=== PATIENT | female | born 1935 | race Asian ===

== ENCOUNTER → 2016-05-29 | Outpatient (CLI) | payer MEDICARE, OTHER ==
[~2016-05-29] MED LIST: ALLO100T PO; AMIT25TA9 PO; AMLO-512 PO; AMLO5TAB66 PO; ASPI81 PO; CARV3 PO; CLON0.1T PO; COLC0.6T69 PO; FERR-89 PO; FOLI1TAB85 PO; HYDR-4172 PO; NITR.4 SL; PRED5 PO; SIMV10TA6 PO; SITA25 PO; VITAD1000 PO
== END | disposition home or self-care (01) ==
LOC: RADPV 10:44
PROVIDERS: ATTEND Nurse Practitioner
DX: I51.7 Cardiomegaly (principal); I70.0 Atherosclerosis of aorta
CPT/HCPCS: 71020

== ENCOUNTER 2016-09-19 08:05 | Inpatient (IN) | payer MEDICARE, OTHER ==
[~2016-09-19] VITALS: Ht 162.6 cm; Wt 47.6 kg
[~2016-09-19 08:05] MED LIST changes: -AMLO-512 PO; -AMLO5TAB66 PO; -CLON0.1T PO; -COLC0.6T69 PO; -HYDR-4172 PO
[2016-09-19] MEDS ORDERED: AMIT25TA9 PO (08:19)
[2016-09-19] MEDS ORDERED: CLON0.1T PO (08:24)
[2016-09-19] MEDS ORDERED: HYDR-4172 PO (08:24)
[2016-09-19] MEDS ORDERED: AMLO5TAB66 PO (08:24)
[2016-09-19] MEDS ORDERED: COLC0.6T69 PO (08:24)
[2016-09-19] MEDS ORDERED: ACETAMINOPHEN 325 MG TABLET PO ONE (08:30)
[2016-09-19 09:02] LABS: ANION GAP 8 mmol/L (8-16); CARBON DIOXIDE 28 mmol/L (22-29); CHLORIDE 95 mmol/L (98-107); CREATININE 3.68 mg/dL (0.60-1.30); GLOMERULAR FILTR. RATE CALC 12 mL/min (>60); POTASSIUM 4.5 mmol/L (3.5-5.1); SODIUM SERUM 131 mmol/L (136-145); UREA NITROGEN, BLOOD 38 mg/dL (7-18)
[2016-09-19 09:22] LABS: BASOPHILS % (AUTO) 1.1 % (0.0-2.0); EOSINOPHILS % (AUTO) 0.9 % (1.0-6.0); HEMATOCRIT 28.2 % (36-46); HEMOGLOBIN 9.3 g/dL (12.0-16.0); LYMPHOCYTES # (AUTO) 1.2 K/uL (1.0-4.8); LYMPHOCYTES % (AUTO) 34.1 % (22.0-44.0); MEAN CORPUSCULAR HGB CONC 33.2 G/dL (31.0-37.0); MEAN CORPUSCULAR VOLUME 96 fL (80-100); MONOCYTES # (AUTO) 0.6 K/uL (0.1-1.0); MONOCYTES % (AUTO) 16.3 % (2.0-9.0); NEUTROPHILS # (AUTO) 1.7 K/uL (1.8-7.7); NEUTROPHILS % (AUTO) 47.6 % (40.0-70.0); PLATELET COUNT (AUTO) 153 K/uL (150-450); RED BLOOD CELL COUNT(AUTO) 2.92 MIL/uL (4.00-5.20); RED CELL DISTRIBUTION WIDTH 19.7 % (11.5-14.5); WHITE BLOOD COUNT (AUTO) 3.6 K/uL (4.5-11.0)
[2016-09-19 09:27] LABS: ALANINE AMINOTRANSFERASE 85 U/L (12-78); ALBUMIN 3.4 g/dL (3.4-5.0); ASPARTATE AMINOTRANSFERASE 88 U/L (15-37); BILIRUBIN,TOTAL 0.6 mg/dL (0.1-1.0); CREATINE KINASE MB 1.3 ng/mL (0-5); CREATINE KINASE, TOTAL 304 U/L (26-192); THYROID STIMULATING HORMONE 2.95 uIU/mL (0.36-3.74); TOTAL PROTEIN, SERUM 7.4 g/dL (6.4-8.2)
[2016-09-19 09:40] LABS: ADD UA MICROSCOPIC YES; APPEARANCE,URINE CLOUDY (CLEAR); GLUCOSE, URINE (UA) NEGATIVE (NEGATIVE); KETONES,URINE TRACE mg/dL (NEGATIVE); LEUKOCYTE ESTERASE ,URINE MODERATE (NEGATIVE); OCCULT BLOOD,URINE MODERATE (NEGATIVE); PROTEIN,URINE POS 1+ (NEGATIVE)
[2016-09-19 09:41] LABS: RBC MORPHOLOGY COMMENT DIMORPHIC RBC
[2016-09-19 09:49] LABS: AMORPHOUS SEDIMENT,UR Moderate /LPF (None Seen); SQUAMOUS EPITHELIAL CELL,UR Few /LPF (None Seen)
[2016-09-19] MEDS ORDERED: DOPamine HCL 400 MG/D5%-WATER 250 ML IV ONE (09:49)
[2016-09-19] MEDS ORDERED: SODIUM CHLORIDE 0.9% 500 ML IV ONE (10:45)
[2016-09-19] MEDS ORDERED: ACETAMINOPHEN 325 MG TABLET PO PRN (11:30)
[2016-09-19] MEDS ORDERED: BISACODYL 10 MG RECTAL RECTAL SUPPOSITORY PR PRN (11:30)
[2016-09-19] MEDS ORDERED: ALBUTEROL SULFATE 2.5 MG/0.5 ML NEB SOLUTION NEB PRN (11:30)
[2016-09-19] MEDS ORDERED: AMLO-512 PO (11:33)
[2016-09-19] MEDS: DOPamine HCL 400 MG/D5%-WATER 250 ML IV SCH ×2 (11:33→18:22)
[2016-09-19] MEDS ORDERED: SODIUM CHLORIDE 0.9% 250 ML IV ONE (12:45)
[2016-09-19 16:00] VITALS: BP 108/50
[2016-09-19] MEDS ORDERED: ONDANSETRON HCL 4 MG/2 ML VIAL IVP PRN (16:30)
[2016-09-19 20:00] VITALS: BP 127/50
[2016-09-19] MEDS: HEPARIN SODIUM,PORCINE 5,000 UNITS/ML VIAL SQ SCH (20:11)
[2016-09-19] MEDS: DOCUSATE SODIUM 100 MG CAPSULE PO SCH (20:11)
[2016-09-20] VITALS (7 sets, daily range): BP systolic 122–143; BP diastolic 45–89
[2016-09-20 05:08] LABS: BASOPHILS % (AUTO) 0.4 % (0.0-2.0); EOSINOPHILS % (AUTO) 0.2 % (1.0-6.0); HEMATOCRIT 26.3 % (36-46); HEMOGLOBIN 8.8 g/dL (12.0-16.0); LYMPHOCYTES # (AUTO) 0.7 K/uL (1.0-4.8); LYMPHOCYTES % (AUTO) 18.8 % (22.0-44.0); MEAN CORPUSCULAR HEMOGLOBIN 32.1 pg (26.0-34.0); MEAN CORPUSCULAR HGB CONC 33.5 G/dL (31.0-37.0); MEAN CORPUSCULAR VOLUME 96 fL (80-100); MONOCYTES # (AUTO) 0.6 K/uL (0.1-1.0); MONOCYTES % (AUTO) 15.6 % (2.0-9.0); NEUTROPHILS # (AUTO) 2.6 K/uL (1.8-7.7); PLATELET COUNT (AUTO) 154 K/uL (150-450); RED BLOOD CELL COUNT(AUTO) 2.74 MIL/uL (4.00-5.20); RED CELL DISTRIBUTION WIDTH 19.7 % (11.5-14.5)
[2016-09-20 05:41] LABS: ALBUMIN 2.9 g/dL (3.4-5.0); BILIRUBIN,TOTAL 0.7 mg/dL (0.1-1.0); CALCIUM, TOTAL 8.1 mg/dL (8.8-10.5); CREATININE 4.57 mg/dL (0.60-1.30); MAGNESIUM 1.8 mg/dL (1.80-2.40); PHOSPHORUS 4.5 mg/dL (2.5-4.9); TOTAL PROTEIN, SERUM 6.6 g/dL (6.4-8.2)
[2016-09-20 05:47] LABS: POTASSIUM 4.7 mmol/L (3.5-5.1)
[2016-09-20] MEDS: VITAMIN B COMP/VIT C/FOLIC ACID CAPSULE PO SCH (08:09)
[2016-09-20] MEDS: PANTOPRAZOLE SODIUM 40 MG DR TABLET PO SCH (08:09)
[2016-09-20] MEDS: ASPIRIN 81 MG CHEWABLE TABLET PO SCH (08:10)
[2016-09-20] MEDS: HEPARIN SODIUM,PORCINE 5,000 UNITS/ML VIAL SQ SCH (08:10)
[2016-09-20] MEDS: DOCUSATE SODIUM 100 MG CAPSULE PO SCH ×2 (08:10→20:47)
[2016-09-20] MEDS ORDERED: EPOETIN ALFA 10,000 UNITS/ML VIAL SQ ONE (09:00)
[2016-09-20] MEDS: APIXABAN 2.5 MG TABLET PO SCH ×2 (09:42→20:47)
[2016-09-20] MEDS ORDERED: MANNITOL 25%-12.5 GM/50 ML VIAL IVP PRN (10:45)
[2016-09-20] MEDS ORDERED: LIDOCAINE HCL/PF 1% 2 ML VIAL ID PRN (10:45)
[2016-09-20] MEDS ORDERED: LIDOCAINE HCL/PF 1% 2 ML VIAL INJ ONE (12:00)
[2016-09-21 00:04] VITALS: BP 129/67
[2016-09-21 05:21] VITALS: BP 133/67
[2016-09-21 07:44] VITALS: BP 130/67
[2016-09-21 07:44] LABS: BASOPHILS # (AUTO) 0.02 K/uL (0.00-0.20); BASOPHILS % (AUTO) 0.4 % (0.0-2.0); EOSINOPHILS # (AUTO) 0.02 K/uL (0.00-0.70); EOSINOPHILS % (AUTO) 0.35 % (1.0-6.0); HEMATOCRIT 26.3 % (36-46); HEMOGLOBIN 8.6 g/dL (12.0-16.0); LYMPHOCYTES # (AUTO) 0.7 K/uL (1.0-4.8); LYMPHOCYTES % (AUTO) 11.1 % (22.0-44.0); MEAN CORPUSCULAR HEMOGLOBIN 32.2 pg (26.0-34.0); MEAN CORPUSCULAR HGB CONC 32.9 G/dL (31.0-37.0); MEAN CORPUSCULAR VOLUME 98 fL (80-100); MONOCYTES # (AUTO) 0.9 K/uL (0.1-1.0); MONOCYTES % (AUTO) 13.7 % (2.0-9.0); NEUTROPHILS # (AUTO) 4.9 K/uL (1.8-7.7); NEUTROPHILS % (AUTO) 74.5 % (40.0-70.0); PLATELET COUNT (AUTO) 131 K/uL (150-450); RED BLOOD CELL COUNT(AUTO) 2.68 MIL/uL (4.00-5.20); RED CELL DISTRIBUTION WIDTH 19.2 % (11.5-14.5); WHITE BLOOD COUNT (AUTO) 6.6 K/uL (4.5-11.0)
[2016-09-21] MEDS: DOCUSATE SODIUM 100 MG CAPSULE PO SCH ×2 (08:06→20:04)
[2016-09-21] MEDS: ASPIRIN 81 MG CHEWABLE TABLET PO SCH (08:06)
[2016-09-21] MEDS: VITAMIN B COMP/VIT C/FOLIC ACID CAPSULE PO SCH (08:07)
[2016-09-21] MEDS: APIXABAN 2.5 MG TABLET PO SCH (08:07)
[2016-09-21] MEDS: PANTOPRAZOLE SODIUM 40 MG DR TABLET PO SCH (08:08)
[2016-09-21 08:12] LABS: ALBUMIN 2.9 g/dL (3.4-5.0); CREATININE 2.77 mg/dL (0.60-1.30); MAGNESIUM 1.7 mg/dL (1.80-2.40); POTASSIUM 3.7 mmol/L (3.5-5.1); TOTAL PROTEIN, SERUM 6.4 g/dL (6.4-8.2)
[2016-09-21 11:13] VITALS: BP 131/65
[2016-09-21 15:59] VITALS: BP 135/72
[2016-09-21] MEDS: OXYGEN THERAPY IH SCH (20:05)
[2016-09-21 20:18] VITALS: BP 148/80
[2016-09-22 00:12] VITALS: BP 141/71
[2016-09-22 05:26] VITALS: BP 142/79
[2016-09-22 07:04] LABS: BASOPHILS % (AUTO) 0.6 % (0.0-2.0); EOSINOPHILS % (AUTO) 0.7 % (1.0-6.0); HEMATOCRIT 24.9 % (36-46); HEMOGLOBIN 8.5 g/dL (12.0-16.0); LYMPHOCYTES # (AUTO) 0.8 K/uL (1.0-4.8); LYMPHOCYTES % (AUTO) 12.7 % (22.0-44.0); MEAN CORPUSCULAR HEMOGLOBIN 32.8 pg (26.0-34.0); MEAN CORPUSCULAR HGB CONC 34.2 G/dL (31.0-37.0); MEAN CORPUSCULAR VOLUME 96 fL (80-100); MONOCYTES # (AUTO) 0.9 K/uL (0.1-1.0); NEUTROPHILS # (AUTO) 4.4 K/uL (1.8-7.7); PLATELET COUNT (AUTO) 156 K/uL (150-450); RED CELL DISTRIBUTION WIDTH 19.3 % (11.5-14.5); WHITE BLOOD COUNT (AUTO) 6.1 K/uL (4.5-11.0)
[2016-09-22 07:05] LABS: RBC MORPHOLOGY COMMENT ABNORMAL RBC MORPH
[2016-09-22 07:31] LABS: ALBUMIN 2.7 g/dL (3.4-5.0); BILIRUBIN,TOTAL 0.7 mg/dL (0.1-1.0); CALCIUM, TOTAL 8.3 mg/dL (8.8-10.5); CREATININE 3.19 mg/dL (0.60-1.30); MAGNESIUM 1.9 mg/dL (1.80-2.40); POTASSIUM 3.8 mmol/L (3.5-5.1); TOTAL PROTEIN, SERUM 6.7 g/dL (6.4-8.2)
[2016-09-22 07:39] VITALS: BP 128/77
[2016-09-22] MEDS ORDERED: SODIUM CHLORIDE 0.9% 2,000 ML IV ONE (08:04)
[2016-09-22] MEDS ORDERED: EPOETIN ALFA 10,000 UNITS/ML VIAL SQ SCH (09:00)
[2016-09-22] MEDS: OXYGEN THERAPY IH SCH (10:25)
[2016-09-22] MEDS ORDERED: ALBUMIN HUMAN 25%-12.5GM/50ML IV BOTTLE IV PRN (11:00)
[2016-09-22] MEDS ORDERED: MANNITOL 25%-12.5 GM/50 ML VIAL IVP PRN (11:00)
[2016-09-22 11:08] VITALS: BP 151/82
[2016-09-22] MEDS: VITAMIN B COMP/VIT C/FOLIC ACID CAPSULE PO SCH (14:00)
[2016-09-22] MEDS: ASPIRIN 81 MG CHEWABLE TABLET PO SCH (14:00)
[2016-09-22] MEDS: DOCUSATE SODIUM 100 MG CAPSULE PO SCH (14:00)
[2016-09-22] MEDS: PANTOPRAZOLE SODIUM 40 MG DR TABLET PO SCH (14:01)
[2016-09-22] MEDS ORDERED: CARVEDILOL 6.25 MG TABLET PO SCH (14:30)
[2016-09-22] MEDS ORDERED: FERR-89 PO (14:57)
[2016-09-22 15:28] VITALS: BP 147/69
== END 2016-09-22 17:15 | disposition home or self-care (01) | DRG 308 ==
LOC: EMS 08:07 → ICU 14:10 → 5S 09-20 18:05
PROVIDERS: ADMIT Internal Medicine; ATTEND Internal Medicine
PROC: 5A1D00Z (ICD-10-PCS; principal; 2016-09-22)
DX: R00.1 Bradycardia, unspecified (principal); N18.6 End stage renal disease; E43 Unspecified severe protein-calorie malnutrition; Z94.0 Kidney transplant status; Z68.1 Body mass index [BMI] 19.9 or less, adult; I13.2 Hypertensive heart and chronic kidney disease with heart failure and with stage 5 chronic kidney disease, or end stage renal disease; I50.30 Unspecified diastolic (congestive) heart failure; I25.10 Atherosclerotic heart disease of native coronary artery without angina pectoris; I49.5 Sick sinus syndrome; D63.1 Anemia in chronic kidney disease; I48.0 Paroxysmal atrial fibrillation; E11.22 Type 2 diabetes mellitus with diabetic chronic kidney disease; E55.9 Vitamin D deficiency, unspecified; E78.00 Pure hypercholesterolemia, unspecified; E78.5 Hyperlipidemia, unspecified; I27.2 Other secondary pulmonary hypertension; K21.9 Gastro-esophageal reflux disease without esophagitis; M10.9 Gout, unspecified; Z82.49 Family history of ischemic heart disease and other diseases of the circulatory system; Z90.49 Acquired absence of other specified parts of digestive tract; Z99.2 Dependence on renal dialysis; Z87.01 Personal history of pneumonia (recurrent); Z88.1 Allergy status to other antibiotic agents; Z88.3 Allergy status to other anti-infective agents; Z91.013 Allergy to seafood; M19.90 Unspecified osteoarthritis, unspecified site; R94.5 Abnormal results of liver function studies; I95.9 Hypotension, unspecified; I34.0 Nonrheumatic mitral (valve) insufficiency; I35.1 Nonrheumatic aortic (valve) insufficiency; D63.8 Anemia in other chronic diseases classified elsewhere; T46.5X5A Adverse effect of other antihypertensive drugs, initial encounter
CPT/HCPCS: 51701; 76705; 83735; 84100; 84443; 87081; 87086; 87340; 90935; 93005; 93306; 99291; J0885; J1265; J1644; J2405; J3490; J7030; J7040; J7050